=== PATIENT | male | born 1985 | race Caucasian/White ===

== ENCOUNTER 2018-04-18 11:08 | Emergency (ER) | payer OTHER ==
[~2018-04-18] VITALS: Ht 170.2 cm; Wt 74.2 kg
[2018-04-18 12:44] VITALS: BP 142/70
== END 2018-04-18 12:49 | disposition home or self-care (01) ==
LOC: ER 11:09
DX: R07.89 Other chest pain (principal); R07.81 Pleurodynia
CPT/HCPCS: 93005; 99283